=== PATIENT | female | born 1995 | race Caucasian/White ===

== ENCOUNTER 2017-09-06 04:37 | Emergency (ER) | payer OTHER ==
[~2017-09-06] VITALS: Ht 170.2 cm; Wt 107.2 kg
[~2017-09-06 04:37] MED LIST: DIPH1TAB87 OR; DOCO1CAP6 PO; HYDR2.5O TOP; PRENTAB26 PO
[2017-09-06 04:40] VITALS: TEMP 36.6; Ht 170.2 cm; Wt 107.2 kg
[2017-09-06] MEDS ORDERED: ONDANSETRON INJ 2 MG/ML 2 ML VIAL IV STA (04:44)
[2017-09-06] MEDS ORDERED: KETOROLAC TROMETHAMINE 30 MG/ML VIAL IV STA (04:44)
[2017-09-06] MEDS ORDERED: SODIUM CHLORIDE 0.9% 1000ML 1,000 ML IV STA (04:44)
[2017-09-06] MEDS ORDERED: OPTIRAY 320 IV PRN (05:00)
[2017-09-06 05:18] LABS: BASO % 0.5 %; BASO ABS # 0.04 K/uL (0-0.2); EOS % 3.5 %; EOS ABS # 0.31 K/uL (0-0.5); HEMATOCRIT 43.3 % (37-47); HEMOGLOBIN 14.4 g/dL (12.0-16.0); IG# 0.02 K/uL (0.00-0.02); LYMPH % 42.7 %; LYMPH ABS # 3.74 K/uL (1.2-3.4); MEAN CELL VOLUME 82.2 fL (80-100); MEAN CORPUSCULAR HEMOGLOBIN 27.3 pg (25-34); MEAN CORPUSCULAR HGB CONC 33.3 g/dl (32-36); MEAN PLATELET VOLUME 9.2 fL (7.4-10.4); NEUT % 45.1 %; NEUT ABS # 3.95 K/uL (1.4-6.5); PLATELET COUNT 196 K/uL (130-400); RED CELL DISTRIBUTION WIDTH SD 42.1 fL (36.4-46.3); WHITE BLOOD COUNT 8.76 K/uL (4.8-10.8)
[2017-09-06 05:35] LABS: ALBUMIN 3.9 gm/dl (3.4-5.0); ALT/SGPT 35 U/L (12-78); AST/SGOT 20 U/L (15-37); BLOOD UREA NITROGEN 11 mg/dl (7-18); CALCIUM 9.1 mg/dl (8.5-10.1); CARBON DIOXIDE 28 mmol/L (21-32); CREATININE 0.82 mg/dl (0.60-1.20); GLUCOSE 87 mg/dl (70-99); POTASSIUM 3.8 mmol/L (3.5-5.1); SODIUM 140 mmol/L (136-145)
[2017-09-06 05:38] LABS: ALKALINE PHOSPHATASE 78 U/L (45-117); TOTAL PROTEIN 7.8 gm/dl (6.4-8.2)
--- NOTE | 2017-09-06 06:53 | EMERGENCY ROOM VISIT NOTE ---
History First contact with patient: 04:40 Chief Complaint: ABDOMINAL PAIN Stated Complaint: SEVERE ABDOMINAL PAIN History of Present Illness The patient is a 21 year old female who presents to the Emergency Room with complaints of right lower quadrant pain for the past days steadily getting worse currently 8 out of 10. Nothing makes it better or worse. Pain described as aching. She has had ovarian cysts before. Patient denies chest pain, dyspnea, fever, chills, nausea, vomiting, diarrhea, back pain, urinary symptoms , vaginal itching or discharge. Review of Systems See HPI for pertinent positives & negatives. A total of 10 systems reviewed and were otherwise negative. Past Medical/Surgical History Medical Problems: (1) Post-dates (2) Tobacco Use Disorder Surgical Problems: (1) Hx of tonsillectomy (2) No significant past surgical history Family History Cancer Diabetes mellitus Social History Smoking Status: Current Every Day Smoker Alcohol Use: none Drug Use: none Marital Status: single Housing Status: lives with family Occupation Status: unemployed Current/Historical Medications No Active Prescriptions or Reported Meds Physical Exam Vital Signs Date Time Temp Pulse Resp B/P (MAP) Pulse Ox O2 Delivery O2 Flow Rate FiO2 09/06/17 06:10 94 16 121/76 100 Room Air 09/06/17 04:40 36.6 129 18 116/76 99 Room Air Physical Exam VITALS: Vitals are noted on the nurse's note and reviewed by myself. Vital signs stable. GENERAL: Pleasant female, in no acute distress, nondiaphoretic, well-developed well-nourished. SKIN: The skin was without rashes, erythema, edema, or bruising. There is no tenting of the skin. Capillary reflex less than 2 seconds. HEAD: Normocephalic atraumatic. EARS: External auditory canals clear, tympanic membranes pearly angel without erythema or effusion bilaterally. EYES: Pupils equal round and reactive to light and accommodation. Conjunctivae without injection, sclerae without icterus. Extraocular movements intact. NOSE: Patent, turbinates without inflammation or discharge. MOUTH: Mucous membranes moist. Pharynx without erythema or exudate. Uvula midline. Airway patent. Tongue does not deviate. NECK: Supple without nuchal rigidity. No lymphadenopathy. No thyromegaly. Cervical spine is nontender. No JVD. HEART: Regular rate and rhythm without murmurs gallops or rubs. LUNGS: Clear to auscultation bilaterally without wheezes, rales or rhonchi. No dullness to percussion. No retractions or accessory muscle use. ABDOMEN: Positive bowel sounds x 4. Normal tympanic percussion. Soft, tender to palpation right lower quadrant, no CVA tenderness, without masses or organomegaly. Bangura sign negative. No guarding or rebound tenderness. MUSCULOSKELETAL: No muscle atrophy, erythema, or edema noted. NEURO: Patient was alert and oriented to person place and time. Normal sensation to light and sharp touch. No focal neurological deficits. Medical Decision & Procedures Laboratory Results 09/06/17 05:10 Red Blood Count 5.27, Mean Corpuscular Volume 82.2, Mean Corpuscular Hemoglobin 27.3, Mean Corpuscular Hemoglobin Concent 33.3, Mean Platelet Volume 9.2, Neutrophils (%) (Auto) 45.1, Lymphocytes (%) (Auto) 42.7, Monocytes (%) (Auto) 8.0, Eosinophils (%) (Auto) 3.5, Basophils (%) (Auto) 0.5, Neutrophils # (Auto) 3.95, Lymphocytes # (Auto) 3.74, Monocytes # (Auto) 0.70, Eosinophils # (Auto) 0.31, Basophils # (Auto) 0.04 09/06/17 05:10 Test 09/06/17 05:10 White Blood Count 8.76 K/uL (4.8-10.8) Red Blood Count 5.27 M/uL (4.2-5.4) Hemoglobin 14.4 g/dL (12.0-16.0) Hematocrit 43.3 % (37-47) Mean Corpuscular Volume 82.2 fL (80-100) Mean Corpuscular Hemoglobin 27.3 pg (25-34) Mean Corpuscular Hemoglobin Concent 33.3 g/dl (32-36) Platelet Count 196 K/uL (130-400) Mean Platelet Volume 9.2 fL (7.4-10.4) Neutrophils (%) (Auto) 45.1 % Lymphocytes (%) (Auto) 42.7 % Monocytes (%) (Auto) 8.0 % Eosinophils (%) (Auto) 3.5 % Basophils (%) (Auto) 0.5 % Neutrophils # (Auto) 3.95 K/uL (1.4-6.5) Lymphocytes # (Auto) 3.74 K/uL (1.2-3.4) Monocytes # (Auto) 0.70 K/uL (0.11-0.59) Eosinophils # (Auto) 0.31 K/uL (0-0.5) Basophils # (Auto) 0.04 K/uL (0-0.2) RDW Standard Deviation 42.1 fL (36.4-46.3) RDW Coefficient of Variation 14.0 % (11.5-14.5) Immature Granulocyte % (Auto) 0.2 % Immature Granulocyte # (Auto) 0.02 K/uL (0.00-0.02) Urine Color YELLOW Urine Appearance CLOUDY (CLEAR) Urine pH 7.0 (4.5-7.5) Urine Specific [place] 1.022 (1.000-1.030) Urine Protein NEG (NEG) Urine Glucose (UA) NEG (NEG) Urine Ketones NEG (NEG) Urine Occult Blood NEG (NEG) Urine Nitrite NEG (NEG) Urine Bilirubin NEG (NEG) Urine Urobilinogen NEG (NEG) Urine Leukocyte Esterase SMALL (NEG) Urine WBC (Auto) 5-10 /hpf (0-5) Urine RBC (Auto) 0-4 /hpf (0-4) Urine Hyaline Casts (Auto) 1-5 /lpf (0-5) Urine Epithelial Cells (Auto) >30 /lpf (0-5) Urine Bacteria (Auto) NEG (NEG) Anion Gap 5.0 mmol/L (3-11) Est Creatinine Clear Calc Drug Dose 139.1 ml/min Estimated GFR () 120.2 Estimated GFR (Non- 103.7 BUN/Creatinine Ratio 13.1 (10-20) Calcium Level 9.1 mg/dl (8.5-10.1) Total Bilirubin 0.2 mg/dl (0.2-1) Direct Bilirubin < 0.1 mg/dl (0-0.2) Aspartate Amino Transf (AST/SGOT) 20 U/L (15-37) Alanine Aminotransferase (ALT/SGPT) 35 U/L (12-78) Alkaline Phosphatase 78 U/L (45-117) Total Protein 7.8 gm/dl (6.4-8.2) Albumin 3.9 gm/dl (3.4-5.0) Human Chorionic Gonadotropin, Qual NEG (NEG) Medications Administered Medications (Trade) Dose Ordered Sig/Lili Route Start Time Stop Time Status Last Admin Dose Admin Sodium Chloride 1,000 ml @ 999 mls/hr Q1H1M STAT IV 09/06/17 04:44 09/06/17 05:44 DC 09/06/17 05:15 999 MLS/HR Ondansetron HCl (Zofran Inj) 4 mg NOW STAT IV 09/06/17 04:44 09/06/17 04:46 DC 09/06/17 05:15 4 MG Ketorolac Tromethamine (Toradol Inj) 30 mg NOW STAT IV 09/06/17 04:44 09/06/17 04:46 DC 09/06/17 05:16 30 MG ED Course Prior records/ancillary studies reviewed. Triage Nursing notes reviewed. Additional history obtained from friend. The patient's history was concerning for abdominal pain. Differential diagnosis: Etiologies such as appendicitis, cyst, torsion, diverticulitis, PUD, biliary pathology, UTI, pancreatitis, obstruction, mesenteric ischemia, aortic pathology , infections, inflammatory bowel disease, renal colic, as well as others were entertained. Physical examination findings: As above. ER treatment provided: Toradol, Zofran On reassessment the patient felt better. Diagnostics interpreted by me: The labs revealed no worrisome leukocytosis. Negative hCG. Negative urine Imaging studies: CT ABDOMEN & PELVIS With Contrast: Comparison is made to prior CT abdomen/pelvis on 03/07/2013. Contracted gallbladder. Stomach is distended with ingested material which may be related to a recent meal. Mildly prominent mesenteric lymph nodes are nonspecific but may be reactive. Normal appendix. No bowel obstruction or inflammation. Small amount of free fluid in the pelvis which measures greater than simple fluid attenuation and may contain blood products, nonspecific. This could be related to a recently ruptured hemorrhagic ovarian cyst. The ovaries contain multiple follicles and are better evaluated on accompany ultrasound. Umbilical piercing. Decompressed bladder. Retroverted uterus. US PELVIC/ENDOVAG: Retroverted uterus measures 7.7 x 5.1 x 5.9 cm. Endometrium measures 1.3 cm. Small echogenic foci within the endometrium may represent small calcifications. Right ovary measures 4.8 x 2.2 x 2.2 cm. Left ovary measures 4.2 x 2.9 x 3.0 cm. Multiple follicles in the ovaries. Normal color Doppler flow to both ovaries. Small amount of free fluid in the pelvis. No adnexal mass. Radiologist: Talat Acosta M.D. Exam and history seem consistent with mesenteric adenitis and possibly recently ruptured cyst. Patient did not have acute abdomen on exam. She is well- appearing. She is tolerating fluids. Patient had no leukocytosis. She is able to ambulate without difficulties. Ultrasound shows good flow to ovaries. No appendicitis. She is advised to rest, stay well-hydrated and follow-up family care in a few days or here in the ER sooner for abdominal pain, fevers, vomiting, worsening signs or symptoms or as needed. By the evaluation outlined above emergent etiologies such as appendicitis, diverticulitis, PUD, biliary pathology, UTI, pancreatitis, obstruction, mesenteric ischemia, aortic pathology , infections, inflammatory bowel disease, renal colic, as well as others were deemed relatively unlikely. The pt informed about the findings as listed above. All questions were answered and pleased with the treatment. Return instructions were outlined and the patient was discharged in stable condition. Referral: The patient was referred back to their primary care physician for follow-up in 2 to 3 days for a recheck of the current condition. Case reviewed by attending Medical Decision As above Medication Reconcilliation Current Medication List: was personally reviewed by dc Blood Pressure Screening Patient's blood pressure: Normal blood pressure Impression Primary Impression: Mesenteric adenitis Additional Impression: Right lower quadrant abdominal pain Departure Information Dispostion Home / Self-Care Condition GOOD Prescriptions No Active Prescriptions or Reported Meds Referrals No Doctor, Assigned (PCP) Patient Instructions [facility] Additional Instructions Ibuprofen(Motrin, Advil) may be used for fever or pain. Use 600mg every six hours as needed. Take with food. Avoid using more than 2400mg in a 24 hour period. Do not use 2400mg per day for more than three consecutive days without physician direction. Prolonged inappropriate use can lead to stomach upset or ulcers. (AND/OR) Acetaminophen(Tylenol) may be used for fever or pain. Use 1000mg every six hours as needed. Avoid using more than 3000mg in a 24 hour period. Rest and drink plenty of fluids as tolerated. Continue current medications. Avoid strenuous activities and anything that worsens your pain. Resume normal activities once your symptoms resolve. Return to the ER immediately for worsening or persistent abdominal pain, vomiting, fevers, chest pains, difficulty breathing, worsening of your condition , or as needed. Follow up with your primary physician in 2-3 days for a recheck of your current condition. Problem Qualifiers
[2017-09-06 07:11] VITALS: BP 108/56; PULSE 100; O2SAT 100
--- NOTE | 2017-09-06 08:58 | DIAGNOSTIC IMAGING REPORT ---
PELVIC ULTRASOUND CLINICAL HISTORY: Right lower quadrant pain. COMPARISON STUDY: ultrasound December 19, 2015. TECHNIQUE: Transabdominal and transvaginal sonography of the pelvis was performed. FINDINGS: The uterus measures 7.7 x 5.1 x 5.9 cm. Endometrium measures 1.3 cm in thickness. A few echogenic foci within the endometrium likely reflect calcifications and are of doubtful significance. The right ovary measures 4.8 x 2.2 x 2.2 cm and the left ovary measures 4.2 x 2.9 x 3 cm. Color flow is identified within each ovary. Small amount of fluid within the pelvis is noted. IMPRESSION: 1. No significant abnormality of the uterus or ovaries. 2. Small amount of fluid within the pelvis. Electronically signed by: Rob Marquis M.D. 09/06/2017 8:56 AM Dictated Date/Time: 09/06/2017 8:54 AM
--- NOTE | 2017-09-06 09:03 | DIAGNOSTIC IMAGING REPORT ---
CT OF THE ABDOMEN AND PELVIS WITH CONTRAST CLINICAL HISTORY: Right lower quadrant abdominal pain. COMPARISON STUDY: Pelvic ultrasound September 06, [address] of the abdomen and pelvis March 07, 2013. TECHNIQUE: Following IV administration of 93 mL of [id number], axial images of the abdomen and pelvis were obtained from the lung bases to the proximal femurs. Images were reviewed in the axial, sagittal, and coronal planes. IV contrast was administered without complication. A dose lowering technique was utilized adhering to the principles of ALARA. CT DOSE: 980.41 mGy.cm FINDINGS: Lung bases are clear. Borderline splenomegaly is noted. The liver, adrenal glands, kidneys and pancreas are normal. There is no hydronephrosis. There is no peripancreatic or pericholecystic infiltration. The gallbladder is contracted. Caliber and wall thickness of small and large bowel are normal. The appendix is normal. There is no pneumatosis, free air or portal venous gas. There is sigmoid diverticulosis without evidence for acute diverticulitis. A small amount of intermediate attenuation pelvic fluid is noted. The ovaries are not enlarged. No enlarged abdominal or pelvic lymph nodes are present. There are no suspicious osseous lesions. IMPRESSION: 1. Normal appendix. No bowel obstruction. 2. Small amount of intermediate attenuation fluid within the pelvis which may be related to a ruptured ovarian cyst. Electronically signed by: Rob Marquis M.D. 09/06/2017 9:02 AM Dictated Date/Time: 09/06/2017 8:57 AM
== END 2017-09-06 07:13 | disposition home or self-care (01) ==
LOC: C.EDB 04:38 → C.EDA 07:13
DX: I88.0 Nonspecific mesenteric lymphadenitis (principal); F17.200 Nicotine dependence, unspecified, uncomplicated; Z80.9 Family history of malignant neoplasm, unspecified; Z83.3 Family history of diabetes mellitus